=== PATIENT | male | born 1945 | race Caucasian/White ===

== ENCOUNTER 2020-06-03 08:51 | Day surgery (SDC) | payer MEDICARE ==
[2020-05-28 11:02] LABS: BASOPHILS % (AUTO) 0.2 % (0-1); EOSINOPHILS % (AUTO) 0.3 % (0-6); HEMATOCRIT 42.2 % (42.0-52.0); LYMPHOCYTES # (AUTO) 0.6 X10'3 (1.1-4.8); LYMPHOCYTES % (AUTO) 6.1 % (21-51); MEAN CORPUSCULAR HEMOGLOBIN 30.3 PG (27.0-31.0); MEAN CORPUSCULAR HGB CONC 33.2 g/dL (33.0-36.5); MEAN CORPUSCULAR VOLUME 91.3 FL (78-98); MEAN PLATELET VOLUME 7.7 FL (7.4-10.4); MONOCYTES # (AUTO) 0.3 X10'3 (0-0.9); NEUTROPHILS # (AUTO) 8.8 X10'3 (1.8-7.7); NEUTROPHILS % (AUTO) 90.4 % (42-75); PLATELET COUNT 192 X10'3 (140-440); RED BLOOD COUNT 4.62 X10'6 (4.70-6.10); RED CELL DISTRIBUTION WIDTH 15.4 % (11.5-14.5); WHITE BLOOD COUNT 9.7 X10'3 (4.5-11.0)
[2020-05-28 11:20] LABS: PARTIAL THROMBOPLASTIN TIME 26 SECONDS (22-32)
[2020-05-28 11:24] LABS: ALANINE AMINOTRANSFERASE 27 U/L (12-78); ALBUMIN 3.3 G/DL (3.4-5.0); ALBUMIN/GLOBULIN RATIO 0.9 (1.1-1.5); ALKALINE PHOSPHATASE 78 IU/L (46-116); ANION GAP 11 (8-16); ASPARTATE AMINO TRANSFERASE 26 U/L (10-37); BILIRUBIN,TOTAL 0.7 MG/DL (0.1-1.0); BLOOD UREA NITROGEN 19 MG/DL (7-18); CALCIUM 8.6 MG/DL (8.5-10.1); CHLORIDE 102 MMOL/L (99-107); GLUCOSE 152 MG/DL (70-104); POTASSIUM 4.1 MMOL/L (3.5-5.1); SODIUM 140 MMOL/L (135-145); TOTAL CARBON DIOXIDE 27.5 MMOL/L (24-32); TOTAL PROTEIN 6.8 G/DL (6.4-8.2); eGFR 73 ML/MIN
[~2020-06-03] VITALS: Ht 188 cm; Wt 98.9 kg
[2020-06-03] VITALS (12 sets, daily range): BP systolic 103–159; BP diastolic 52–83
[~2020-06-03 08:51] MED LIST: ALLO100T PO; ASPI-1053 PO; ATOR10TA87 PO; CLOP75TA15 PO; FLO0.4C PO; HYDR-4353 PO; METO50TA7 PO; VALS1TAB80 PO
[2020-06-03] MEDS ORDERED: normal saline 1,000 ML IV SCH (09:20)
[2020-06-03] MEDS ORDERED: diphenhydrAMINE 25mg capsule PO PRN (09:20)
[2020-06-03] MEDS ORDERED: nitroGLYCERIN 0.4mg SUBLingual tab SL PRN (09:20)
[2020-06-03] MEDS ORDERED: LORazepam 0.5 MG tablet PO PRN (09:20)
[2020-06-03] MEDS ORDERED: ALLO300T8 PO (09:25)
[2020-06-03] MEDS ORDERED: LEVO200T PO (09:25)
[2020-06-03] MEDS ORDERED: OMEP40CA13 PO (09:25)
[2020-06-03] MEDS ORDERED: FINA5TAB12 PO (09:25)
[2020-06-03] MEDS ORDERED: LOSA50TA64 PO (09:25)
[2020-06-03] MEDS ORDERED: DIGO-16 PO (09:25)
[2020-06-03] MEDS ORDERED: HYDR12.55 PO (09:25)
[2020-06-03] MEDS ORDERED: ASPI-1053 PO (09:29)
[2020-06-03] MEDS ORDERED: CYCL-1 PO (09:29)
[2020-06-03] MEDS ORDERED: LIOT25TA6 PO (09:29)
[2020-06-03 10:16] LABS: TROPONIN I < 0.04 NG/ML (0.0-0.05)
[2020-06-03] MEDS ORDERED: iohexol 350MG/ML 100ml bottle IV ONE (10:21)
[2020-06-03] MEDS ORDERED: iohexol 350 MG/ML 50ML vial IV ONE ×3 (10:21→11:22)
[2020-06-03] MEDS ORDERED: midazolam 2 mg/2 ml injection ONE ×2 (10:21→10:55)
[2020-06-03] MEDS ORDERED: LIDOcaine 1% (10mg/ml)w/preservative injection 20ml MDV ONE (10:21)
[2020-06-03] MEDS ORDERED: fentaNYL/PF 50MCG/1 ML 2ML syringe ONE ×2 (10:21→11:11)
[2020-06-03] MEDS ORDERED: HYDROmorphone 1 mg/ml syringe ONE (11:02)
[2020-06-03] MEDS ORDERED: ondansetron/PF 4mg/2ml inj IV PRN (12:20)
[2020-06-03] MEDS ORDERED: proCHLORperazine 10 MG/2 ml inj IV PRN (12:20)
[2020-06-03] MEDS ORDERED: HYDROcodone/acetaminophen 5mg/325mg tablet PO PRN (12:20)
[2020-06-03] MEDS ORDERED: HYDROcodone/acetaminophen 10/325mg tab PO PRN (12:20)
[2020-06-03] MEDS ORDERED: OXAZEpam 15mg capsule PO PRN (12:20)
[2020-06-03] MEDS ORDERED: FLU VACC QS2020-21(6MOS UP)/PF 60 MCG/0.5 ML SYRINGE IMVAC ONE (18:00)
== END 2020-06-03 18:00 | disposition home or self-care (01) ==
LOC: SSTAY O 08:51
PROVIDERS: ATTEND Internal Medicine Cardiovascular Disease
DX: R94.39 Abnormal result of other cardiovascular function study (principal); R06.02 Shortness of breath; I25.119 Atherosclerotic heart disease of native coronary artery with unspecified angina pectoris; I10 Essential (primary) hypertension; E78.5 Hyperlipidemia, unspecified; J44.9 Chronic obstructive pulmonary disease, unspecified; N40.0 Benign prostatic hyperplasia without lower urinary tract symptoms; K21.9 Gastro-esophageal reflux disease without esophagitis; I70.203 Unspecified atherosclerosis of native arteries of extremities, bilateral legs; Z87.891 Personal history of nicotine dependence; Z79.01 Long term (current) use of anticoagulants; Z79.82 Long term (current) use of aspirin; Z79.899 Other long term (current) drug therapy
CPT/HCPCS: 36415; 71046; 80053; 83880; 84484; 85025; 85610; 85730; 93005; 93458; 93567; 99152; 99153; C1760; C1769; J1170; J1644; J2001; J2250; J3010; J7030; Q0163; Q9967

== ENCOUNTER 2021-10-07 08:22 | Day surgery (SDC) | payer MEDICARE ==
[~2021-10-07] VITALS: Ht 182.9 cm; Wt 87.5 kg
[~2021-10-07 08:22] MED LIST changes: -ALLO100T PO; +ALLO300T8 PO; -CLOP75TA15 PO; +CYCL-1 PO; +DIGO-16 PO; +FINA5TAB12 PO; +HYDR12.55 PO; +LEVO200T PO; +LIOT25TA6 PO; +LOSA50TA64 PO; +OMEP40CA21 PO
[2021-10-07 08:53] VITALS: BP 114/57
[2021-10-07 09:51] LABS: BASOPHILS % (AUTO) 0.4 % (0-1); EOSINOPHILS # (AUTO) 0.1 X10'3 (0-0.9); EOSINOPHILS % (AUTO) 0.6 % (0-6); HEMATOCRIT 39.5 % (42.0-52.0); LYMPHOCYTES # (AUTO) 1.5 X10'3 (1.1-4.8); LYMPHOCYTES % (AUTO) 14.4 % (21-51); MEAN CORPUSCULAR HEMOGLOBIN 28.4 PG (27.0-31.0); MEAN CORPUSCULAR HGB CONC 32.8 g/dL (33.0-36.5); MEAN CORPUSCULAR VOLUME 86.6 FL (78-98); MEAN PLATELET VOLUME 7.3 FL (7.4-10.4); MONOCYTES # (AUTO) 0.8 X10'3 (0-0.9); NEUTROPHILS % (AUTO) 76.6 % (42-75); PLATELET COUNT 206 X10'3 (140-440); RED BLOOD COUNT 4.57 X10'6 (4.70-6.10); RED CELL DISTRIBUTION WIDTH 16.1 % (11.5-14.5); WHITE BLOOD COUNT 10.4 X10'3 (4.5-11.0)
[2021-10-07] MEDS ORDERED: ATOR10TA87 PO (10:03)
[2021-10-07] MEDS ORDERED: HYDR12.55 PO (10:03)
[2021-10-07] MEDS ORDERED: ALBU18HF2 (10:05)
[2021-10-07] MEDS ORDERED: fentaNYL/PF 50MCG/1 ML 2ML syringe ONE (10:41)
[2021-10-07] MEDS ORDERED: LIDOcaine 1%/PF 5ML 10 MG/ML VIAL ONE (10:41)
[2021-10-07] MEDS ORDERED: midazolam 1 mg/ML 2ml injection ONE (10:41)
[2021-10-07 11:08] VITALS: BP 148/91
== END 2021-10-07 11:35 | disposition home or self-care (01) ==
LOC: SSTAY O 08:22
PROVIDERS: ATTEND Radiology Vascular & Interventional Radiology
DX: R91.1 Solitary pulmonary nodule (principal); I10 Essential (primary) hypertension; E78.5 Hyperlipidemia, unspecified; M10.9 Gout, unspecified; Z85.118 Personal history of other malignant neoplasm of bronchus and lung; Z85.850 Personal history of malignant neoplasm of thyroid; Z87.891 Personal history of nicotine dependence; Z72.89 Other problems related to lifestyle; Z79.899 Other long term (current) drug therapy; F12.90 Cannabis use, unspecified, uncomplicated; Z80.0 Family history of malignant neoplasm of digestive organs; Z80.3 Family history of malignant neoplasm of breast
CPT/HCPCS: 32408; 36415; 85025; J3490; J7030; 77012; A4615; J2250; J3010